=== PATIENT | female | born 1975 | race Caucasian/White ===

== ENCOUNTER 2020-05-01 09:22 | Emergency (ER) | payer OTHER, SELFPAY ==
[2020-05-01 09:38] VITALS: BP 150/79; PULSE 88; RESP 16; TEMP 36.1; O2SAT 97; BMI 30.9
[2020-05-01 09:39] VITALS: PULSE 78
--- NOTE | 2020-05-01 09:42 | PC.NURSE ---
Patient noticed at the end of her walk last night her left foot felt off, her shoe kept slipping off. Ongoing numbness to left leg I felt like a boat with one oar Numbness noted to front of leg up to groin. Took Aspirin last night and today. No other deficits.
--- NOTE | 2020-05-01 09:49 | ED.NEUROSD ---
HPI - Neuro Symptoms/Deficit General Chief Complaint: Neuro Symptoms/Deficit Stated Complaint: Left leg is numb Time Seen by Provider: 05/01/20 09:40 Source: patient Mode of arrival: Family Vehicle Limitations: no limitations History of Present Illness HPI Narrative: The patient was out walking yesterday, she was in sandals. About 3:00 p.m. she realized she could not keep her left sound on, it kept falling off. She has no back pain. She feels like the left foot is drooping. She has numbness throughout the left leg, yet she remains ambulatory. She has no headache, no visual changes or confusion. She has no upper extremity numbness or weakness. Her right leg is unaffected. She has had no back pain, she has no history of lower extremity nerve issues. She has no bowel or bladder incontinence. She has a history of pseudotumor cerebri, she has been asymptomatic for several years. She has no history of CVA. On Anticoagulants: No Related Data Previous Rx's Medication Instructions Recorded lorazepam [Ativan] 0.5 mg PO Q6H PRN #10 tab 05/01/20 Allergies Allergy/AdvReac Type Severity Reaction Status Date / Time Sulfa (Sulfonamide Allergy Verified 05/01/20 09:43 Antibiotics) sumatriptan [From Imitrex] Allergy Verified 05/01/20 09:44 Review of Systems Constitutional Constitutional: Denies chills, Denies fever(s) and Denies weakness Cardiovascular Cardiovascular: Denies chest pain, Denies irregular heart rhythm, Denies lightheadedness, Denies dyspnea, Denies dyspnea on exertion and Denies orthopnea Respiratory Respiratory: Denies cough, Denies dyspnea, Denies dyspnea on exertion and Denies wheezing Gastrointestinal Gastrointestinal: Denies abdominal pain, Denies change in bowel habits, Denies diarrhea, Denies nausea and Denies vomiting Comments: No GI incontinence. Genitourinary Comments: No urine incontinence. Musculoskeletal Comments: Left leg weakness. Integumentary/Breasts Skin/Breast: Denies pruritus, Denies erythema, Denies rash and Denies wounds Neurologic Neurologic: Denies confusion and Denies weakness Comments: Left leg numbness or weakness. No speech changes, confusion, or other neurologic deficits. Psychiatric Psychiatric: Denies anxiety and Denies confusion Allergic/Immunologic Allergic/Immunologic: Denies wheezing Patient History Social History Smoking Status: Never smoker Smoking Status: Never smoker alcohol intake frequency: a few times a week Substance Use Type: marijuana Exam Initial Vital Signs Initial Vital Signs: Vital Signs Temperature 97 F L 05/01/20 09:38 Pulse Rate 88 05/01/20 09:38 Respiratory Rate 16 05/01/20 09:38 Blood Pressure 150/79 H 05/01/20 09:38 Pulse Oximetry 97 05/01/20 09:38 Const General: cooperative and well developed Nutritional Appearance: well nourished [facility] Head: normal to inspection and normocephalic Eyes General: appearance normal, both eyes and all related structures Eyelids: eyelids normal Conjunctivae: conjunctivae normal Sclera: sclerae normal Pupils: PERRL EOM: EOM intact bilaterally Resp Effort & Inspection: normal respiratory effort and able to speak in complete sentences Auscultation: clear to auscultation bilaterally, no rales, no rhonchi and no wheezes Cardio Rate: regular rate Rhythm: regular rhythm Heart Sounds: S1 normal, S2 normal, no click, no gallops, no murmurs and no rubs Pulses: normal peripheral pulses GI Palpation: soft and No tender Back/Spine/Pelvis Back: No CVA tenderness Cervical Spine: cervical ROM normal Thoracic/Lumbar Spine: thoracic and lumbar spine normal to inspection Sacroiliac Joints: nontender Skin General: no rashes or lesions noted, No jaundice and No petechiae Neuro General: patient alert, patient awake and patient oriented x3 Other: Left leg weakness noted with gait. Motor and since exam of the upper extremities of the right legs intact. She has light touch and pinprick deficits throughout the left leg. Proximal strength is intact. She has a left footdrop. She has dorsiflexion weakness only. Plantar flexion is intact. Course Orders Ordered: ED Orders 05/01/20 10:44 MR lumbar spine wo con Stat 05/01/20 10:52 Basic Metabolic Panel Stat Complete Blood Count AUTO DIFF Stat Partial Thromboplastin Time Stat Prothrombin Time INR Stat Vital Signs Vital signs: Vital Signs - 8 hr 05/01/20 13:25 05/01/20 13:26 05/01/20 14:13 Pulse Rate 65 65 59 L Respiratory Rate 18 Blood Pressure 145/79 H 141/87 H Pulse Oximetry 99 99 99 MDM - Neuro Symptoms/Deficit Lab Data Result diagrams: 05/01/20 10:52 05/01/20 10:52 Labs: Lab Results 05/01/20 05/01/20 05/01/20 Range/Units 10:52 10:52 10:52 WBC 5.1 (4.5-11.0) X10^3/uL RBC 4.18 (4.0-5.2) X10^6/uL Hgb 13.8 (12.0-16.0) g/dL Hct 40.0 (36-46) % MCV 95.6 (80-100) fL MCH 33.1 (26-34) PG MCHC 34.6 (30-36) % RDW 13.4 (11.6-14.8) % Plt Count 266 (150-400) X10^3/uL Neut % (Auto) 56.6 (50-75) % Lymph % (Auto) 32.6 (25-40) % Laporte % (Auto) 8.1 (3-14) % Eos % (Auto) 1.7 L (2-4) % Baso % (Auto) 1.0 (0-2) % Neut # (Auto) 2900 (6647-3972) /uL Lymph # (Auto) 1700 (0323-8689) /uL [place] # (Auto) 400 (0-900) /uL Eos # (Auto) 100 (0-450) /uL Baso # (Auto) 0 (0-100) /uL PT 9.8 L (10.1-12.7) SECONDS INR 0.8 L (0.9-1.3) APTT 31 (26.4-36.2) SECONDS Sodium 137 (137-145) mmol/L Potassium 4.8 (3.4-5.1) mmol/L Chloride 106 (98-107) mmol/L Carbon Dioxide 26 (22-32) mmol/L BUN 16 (7-17) mg/dL Creatinine 0.76 (0.52-1.04) mg/dL Estimated GFR > 60.0 (>60) mL/min BUN/Creatinine Ratio 21.1 (6-22) Glucose 85 (70-100) mg/dL Calcium 9.6 (8.4-10.2) mg/dL Imaging Data CT scan - head: Radiologist's Impression: No acute findings Lumbar MRI: My Impression: 2 Diagnostics DATE TYPE STATUS REF RANGE/AUTHOR Hx 05/01/20 10:44 KianaRamin 05/01/20 10:00 Ramin Bruno Alanna M 44, F0 1975 [facility] 162.56cm 81.647kg BMI: 30.9kg/m? Neuro Symptoms/Deficit Search Chart No Data to Display ONSET Today 14:13 Lisa Muñoz 44 F 1975 [place] [address] Magnetic Resonance Report Signed Patient: Lisa Muñoz MMR#: [id number] : 1975Acct:[id number] Age/Sex: 44 / FDate of Service: 05/01/20 Loc: ED Accession Number: [id number] Procedure: MR lumbar spine wo con Ordering Provider: Sriram Gibson MD PROCEDURE: MR LUMBAR SPINE WO CON INDICATIONS: Acute left leg sensory deficit. Left footdrop. TECHNIQUE: Noncontrast sagittal T1 spin echo and T2 fast echo, sagittal STIR, axial T1 and T2 fast spin echo through the lumbar spine. In cases with scoliosis, additional coronal T2 fast spin echo may be performed. COMPARISON: None. FINDINGS: Image quality: Excellent. Alignment and Curvature: There is mild grade 1 anterolisthesis seen at the L4 and L5 level. Minimal retrolisthesis is seen at L5-S1. Bone Marrow: Marrow is of normal overall signal. No acute vertebral body compression fractures. Spinal Cord: Conus medullaris terminates at the L1 level. Visualized cord demonstrates normal signal and size. Paraspinous Soft Tissues: No paravertebral masses. Posteriorly directed synovial cysts are seen at the L4-5 level on both sides into the paraspinous soft tissues. T12-L1: Normal appearance. L1-L2: Normal appearance. L2-L3: Normal appearance. L3-L4: Mild loss of disc height is seen. Loss of disc signal is seen. Mild to moderate disc bulge is seen. Mild to moderate facet hypertrophy is seen. There is mild left-sided and right-sided neural foraminal narrowing seen. Minimal central canal narrowing is seen. L4-L5: Moderate loss of disc height is seen. Loss of disc signal is seen. Moderate disc bulge is seen, which is eccentric to the right. Moderate facet joint hypertrophy is seen. Mild bilateral neural foraminal narrowing is seen. Mild to moderate central canal narrowing is seen. L5-S1: Mild loss of disc height is seen. Loss of disc signal is seen. Mild disc bulge is seen, with a mild central disc protrusion. Mild facet joint hypertrophy is seen. There is moderate left-sided and mild to moderate right-sided neural foraminal narrowing seen. No central canal narrowing is seen. IMPRESSION: Lower lumbar spine degenerative changes are seen, without an acute abnormality seen to explain the patient's presenting acute symptoms. Dictated by: Ramin Bruno M.D. on 05/01/2020 at 10:33 Approved by: Ramin Bruno M.D. on 05/01/2020 at 10:38 ECG Data Attestation: I personally reviewed and interpreted this ECG as follows: (Normal sinus rhythm rate 70 beats per minute. Normal intervals. No ectopy. No acute ST T wave changes.) MDM Narrative Medical decision making narrative: The patient has no suggestion of CVA on her evaluation. She has a left footdrop, with sensory deficit throughout the left leg. This is not well explained by the lumbar MRI. I discussed the situation Orthopedics, Dr. Sera Lynch. From Dr. Lynch's recommendation I have referred the patient to her ortho partner, Dr. Nobles, who was a specialist and nonsurgical back treatment. Contact information was given to the patient prior to discharge. 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 Ativan 0.5 mg every 6 hours as needed for agitation. Follow-up with Orthopedics, a gave you contact information for Dr. Nobles in [place], [place]. Return to the ER if you have worsening symptoms. Prescriptions: New lorazepam [Ativan] 0.5 mg tablet 0.5 mg PO Q6H PRN (Reason: agitation) Qty: 10 RF: 0 Referrals: Mathew Nobles MD [Physician] -
--- NOTE | 2020-05-01 10:00 | DI.CT.S_ITS ---
PROCEDURE: CT HEAD/BRAIN WO CON INDICATIONS: left leg numbness/weakness. TECHNIQUE: Noncontrast 4.5 mm thick angled axial sections acquired from the foramen magnum to the vertex, with coronal and sagittal reformats. For radiation dose reduction, the following was used: automated exposure control, adjustment of mA and/or kV according to patient size. COMPARISON: None. FINDINGS: Image quality: Excellent. CSF spaces: Basal cisterns are patent. No extra-axial fluid collections. Ventricles are normal in size and shape. Brain: No midline shift. No intracranial masses or hemorrhage. Ruth-white matter interface is normal. Skull and face: Calvarium and visualized facial bones are intact, without suspicious lesions. Sinuses: Visualized sinuses and mastoids are clear. IMPRESSION: Normal noncontrast head CT. No hemorrhage can be seen. If there is strong clinical suspicion for an acute stroke, please consider an MRI for further evaluation, as it is more sensitive (assuming that there is no contraindication to MRI). Dictated by: Ramin Bruno M.D. on 05/01/2020 at 9:24 Approved by: Ramin Bruno M.D. on 05/01/2020 at 9:24
--- NOTE | 2020-05-01 10:44 | DI.MRI.S_ITS ---
PROCEDURE: MR LUMBAR SPINE WO CON INDICATIONS: Acute left leg sensory deficit. Left footdrop. TECHNIQUE: Noncontrast sagittal T1 spin echo and T2 fast echo, sagittal STIR, axial T1 and T2 fast spin echo through the lumbar spine. In cases with scoliosis, additional coronal T2 fast spin echo may be performed. COMPARISON: None. FINDINGS: Image quality: Excellent. Alignment and Curvature: There is mild grade 1 anterolisthesis seen at the L4 and L5 level. Minimal retrolisthesis is seen at L5-S1. Bone Marrow: Marrow is of normal overall signal. No acute vertebral body compression fractures. Spinal Cord: Conus medullaris terminates at the L1 level. Visualized cord demonstrates normal signal and size. Paraspinous Soft Tissues: No paravertebral masses. Posteriorly directed synovial cysts are seen at the L4-5 level on both sides into the paraspinous soft tissues. T12-L1: Normal appearance. L1-L2: Normal appearance. L2-L3: Normal appearance. L3-L4: Mild loss of disc height is seen. Loss of disc signal is seen. Mild to moderate disc bulge is seen. Mild to moderate facet hypertrophy is seen. There is mild left-sided and right-sided neural foraminal narrowing seen. Minimal central canal narrowing is seen. L4-L5: Moderate loss of disc height is seen. Loss of disc signal is seen. Moderate disc bulge is seen, which is eccentric to the right. Moderate facet joint hypertrophy is seen. Mild bilateral neural foraminal narrowing is seen. Mild to moderate central canal narrowing is seen. L5-S1: Mild loss of disc height is seen. Loss of disc signal is seen. Mild disc bulge is seen, with a mild central disc protrusion. Mild facet joint hypertrophy is seen. There is moderate left-sided and mild to moderate right-sided neural foraminal narrowing seen. No central canal narrowing is seen. IMPRESSION: Lower lumbar spine degenerative changes are seen, without an acute abnormality seen to explain the patient's presenting acute symptoms. Dictated by: Ramin Bruno M.D. on 05/01/2020 at 10:33 Approved by: Ramin Bruno M.D. on 05/01/2020 at 10:38
[2020-05-01 11:08] LABS: Add Manual Diff / Slide Review NO; Basophils Absolute Auto 0 /uL (0-100); Eosinophils Absolute Auto 100 /uL (0-450); Eosinophils Percent Auto 1.7 % (2-4); Hemoglobin 13.8 g/dL (12.0-16.0); Lymphocytes Absolute Auto 1700 /uL (1100-4500); Lymphocytes Percent Auto 32.6 % (25-40); Mean Corpuscular HGB Conc 34.6 % (30-36); Mean Corpuscular Hemoglobin 33.1 PG (26-34); Mean Corpuscular Volume 95.6 fL (80-100); Monocytes Absolute Auto 400 /uL (0-900); Monocytes Percent Auto 8.1 % (3-14); Neutrophils Absolute Auto 2900 /uL (1500-7000); Neutrophils Percent Auto 56.6 % (50-75); Platelet Count 266 X10^3/uL (150-400); Red Blood Cell Count 4.18 X10^6/uL (4.0-5.2); Red Cell Distribution Width 13.4 % (11.6-14.8); White Blood Cell Count 5.1 X10^3/uL (4.5-11.0)
[2020-05-01 11:14] LABS: INR 0.8 (0.9-1.3); Prothrombin Time 9.8 SECONDS (10.1-12.7)
[2020-05-01 11:16] LABS: PTT Partial Thromboplastin Tim 31 SECONDS (26.4-36.2)
[2020-05-01 11:17] LABS: BUN Creatinine Ratio 21.1 (6-22); Blood Urea Nitrogen 16 mg/dL (7-17); Calcium 9.6 mg/dL (8.4-10.2); Carbon Dioxide 26 mmol/L (22-32); Chloride 106 mmol/L (98-107); Estimated Glomerular Filt Rate > 60.0 mL/min (>60); Glucose 85 mg/dL (70-100); HEMOLYSIS < 15 (0-50); Potassium 4.8 mmol/L (3.4-5.1); Sodium 137 mmol/L (137-145)
[2020-05-01 13:25] VITALS: PULSE 65; O2SAT 99
[2020-05-01 13:26] VITALS: BP 145/79; PULSE 65; O2SAT 99
[2020-05-01 14:13] VITALS: BP 141/87; PULSE 59; RESP 18; O2SAT 99
== END 2020-05-01 14:15 | disposition home or self-care (01) ==
PROVIDERS: Emergency Provider Emergency Medicine
DX: G57.92 Unspecified mononeuropathy of left lower limb (principal); R53.1 Weakness; R07.9 Chest pain, unspecified
CPT/HCPCS: 36415; 70450; 72148; 80048; 85025; 85610; 85730; 93005; 99283; 99284